=== PATIENT | female | born 1980 | race African-American/Black ===

== ENCOUNTER 2021-07-06 10:30 | Emergency (ER) | payer OTHER | END 2021-07-06 13:00 | disposition home or self-care (01) | LOC: CSHERS 10:30 | DX: M71.22 Synovial cyst of popliteal space [Baker], left knee (principal); D64.9 Anemia, unspecified; E03.9 Hypothyroidism, unspecified; F17.210 Nicotine dependence, cigarettes, uncomplicated ==